=== PATIENT | male | born 1960 | race Caucasian/White ===

== ENCOUNTER 2017-03-26 13:20 | Inpatient (IN) | payer OTHER ==
[2017-03-26] VITALS (7 sets, daily range): BP systolic 126–149; BP diastolic 70–90; PULSE 64–82; RESP 16–17; TEMP 96.2–98.2; O2SAT 94–100
[~2017-03-26] VITALS: Ht 172.7 cm; Wt 57.4 kg
--- NOTE | 2017-03-26 13:34 | PD ---
Physical Exam Date Seen by Provider: Mar 26, 2017 Time Seen by Provider: 13:32 Data Data Last Documented VS Vital Signs Date Time Temp Pulse Resp B/P Pulse Ox O2 Delivery O2 Flow Rate FiO2 03/26/17 13:22 98.2 81 14 149/90 98 MDM Supervised Visit with HATTIE: No Narrative Course 56 YO right hand dominant M with complaint of laceration of right arm sustained ~noon. Crushed in a machine at work. Seen at urgent care and sent here. Vitals reviewed. Patient seen in triage, awaiting bed placement. Nika Harris Mar 26, 2017 13:33
--- NOTE | 2017-03-26 14:08 | PD ---
HPI Chief Complaint: Laceration/Skin Injury Time Seen by Provider: 14:00 Travel History International Travel<30 days: No Contact w/Intl Traveler<30days: No Traveled to known affect area: No History of Present Illness HPI 56-year-old right-hand dominant male presents for evaluation of laceration to the right forearm. He reports that prior to arrival his forearm became pinched by a machine at work and he sustained lacerations before and dorsal aspect of the right mid forearm. He has some pain associated with lacerations, mild, aching, worse with palpation. He also has some weakness when attempting to dorsiflex his third finger. Denies any numbness or tingling. Last tetanus vaccination unknown. No other complaints. PFSH Past Medical History Cardiovascular Problems: Yes (htn) Social History Alcohol Use: Yes Tobacco Use: Yes Allergies-Medications (Allergen,Severity, Reaction): Coded Allergies: No Known Allergies (Unverified , 03/26/17) Reported Meds & Prescriptions Reported Meds & Active Scripts Active Reported Combivent Respimat Inh (Ipratropium-Albuterol Inh) 20-100 Long Term/Act Aero 1 Puff INH QID Paxil (Paroxetine HCl) 30 Mg Tab 30 Mg PO HS Trazodone (Trazodone HCl) 100 Mg Tablet 200 Mg PO HS Xanax (Alprazolam) 1 Mg Tab 1 Mg PO TID Baclofen 10 Mg Tab 15 Mg PO TID Gabapentin 800 Mg Tab 800 Mg PO TID Naproxen 500 Mg Tab 500 Mg PO BID Review of Systems Except as stated in HPI: all other systems reviewed are Neg Physical Exam Narrative GENERAL: Well-developed well-nourished male in no acute distress SKIN: Warm and dry. There is a 2 cm laceration on the volar aspect of the mid right forearm which does not appear to involve the muscles. There is a 2 cm laceration on the dorsal aspect the right mid forearm. HEAD: Atraumatic. Normocephalic. EYES: Pupils equal and round. No scleral icterus. No injection or drainage. ENT: No nasal bleeding or discharge. Mucous membranes pink and moist. NECK: Trachea midline. No JVD. CARDIOVASCULAR: Regular rate and rhythm. No murmur appreciated. RESPIRATORY: No accessory muscle use. Clear to auscultation. Breath sounds equal bilaterally. GASTROINTESTINAL: Abdomen soft, non-tender, nondistended. Hepatic and splenic margins not palpable. MUSCULOSKELETAL: Skin as noted above. Slight weakness with dorsiflexion of the right third finger. 5 out of 5 muscle strength on right wrist flexion and extension. Capillary refill less than 2 seconds all digits right hand. Distal sensation preserved. NEUROLOGICAL: Awake and alert. No obvious cranial nerve deficits. Motor grossly within normal limits. Normal speech. PSYCHIATRIC: Appropriate mood and affect; insight and judgment normal. Data Data Last Documented VS Vital Signs Date Time Temp Pulse Resp B/P Pulse Ox O2 Delivery O2 Flow Rate FiO2 03/26/17 14:02 82 16 135/85 98 Room Air 03/26/17 13:22 98.2 Orders Cefazolin 2 Gm Premix (Ancef 2 Gm Premix (03/26/17 14:15) Tetanus/Diphtheria Tox Adult (Tetanus/Di (03/26/17 14:15) Forearm (2vws) (03/26/17 ) NPO (03/26/17 14:48) Complete Blood Count With Diff (03/26/17 14:48) Basic Metabolic Panel (Bmp) (03/26/17 14:48) Act Partial Throm Time (Ptt) (03/26/17 14:48) Prothrombin Time / Inr (Pt) (03/26/17 14:48) Electrocardiogram (03/26/17 ) Admit Order (Ed Use Only) (03/26/17 15:25) Consult Hand Surgery (03/26/17 ) Labs Laboratory Tests Test 03/26/17 03/26/17 15:00 15:20 White Blood Count 11.8 TH/MM3 Red Blood Count 4.82 MIL/MM3 Hemoglobin 14.7 GM/DL Hematocrit 43.6 % Mean Corpuscular Volume 90.5 FL Mean Corpuscular Hemoglobin 30.5 PG Mean Corpuscular Hemoglobin 33.7 % Concent Red Cell Distribution Width 13.5 % Platelet Count 350 TH/MM3 Mean Platelet Volume 8.3 FL Neutrophils (%) (Auto) 78.8 % Lymphocytes (%) (Auto) 13.6 % Monocytes (%) (Auto) 6.9 % Eosinophils (%) (Auto) 0.2 % Basophils (%) (Auto) 0.5 % Neutrophils # (Auto) 9.3 TH/MM3 Lymphocytes # (Auto) 1.6 TH/MM3 Monocytes # (Auto) 0.8 TH/MM3 Eosinophils # (Auto) 0.0 TH/MM3 Basophils # (Auto) 0.1 TH/MM3 CBC Comment DIFF FINAL Differential Comment Prothrombin Time 11.4 SEC Prothromb Time International 1.0 RATIO Ratio Activated Partial 28.7 SEC Thromboplast Time Sodium Level 134 MEQ/L Potassium Level 3.8 MEQ/L Chloride Level 99 MEQ/L Carbon Dioxide Level 28.0 MEQ/L Anion Gap 7 MEQ/L Blood Urea Nitrogen 12 MG/DL Creatinine 1.95 MG/DL Estimat Glomerular Filtration 36 ML/MIN Rate Random Glucose 84 MG/DL Calcium Level 8.5 MG/DL [facility] Medical Decision Making Medical Screen Exam Complete: Yes Emergency Medical Condition: Yes Medical Record Reviewed: Yes Differential Diagnosis Laceration, crush injury, compartment syndrome, muscle laceration, tendon laceration, open fracture Narrative Course 56-year-old male presents with lacerations to the volar and dorsal aspect of the right forearm after having his forearm pinched by a machine at work. He has weakness with dorsiflexion of the right third finger. Plan is for x-ray, tetanus vaccination, Ancef. We'll discuss with hand surgeon pest control specialist. Discussed with on-call hand surgeon Dr. Juárez who would like the patient to be NPO and admitted to the medical service. Discussed with the patient was agreeable. Diagnosis Primary Impression: Laceration of right forearm Qualified Code: S51.811A - Laceration of right forearm, initial encounter Admitting Information Admitting Physician Requests: Observation Donny Kruger Mar 26, 2017 14:08
[2017-03-26] MEDS ORDERED: ceFAZolin 2 GM PREMIX 50 ML IV ONE (14:15)
[2017-03-26] MEDS ORDERED: TETANUS/DIPHTHERIA TOXOID ADULT 0.5 ML VIAL IM ONE (14:15)
[2017-03-26] MEDS ORDERED: IPRAAER INH (15:16)
[2017-03-26] MEDS ORDERED: GABA800T PO (15:16)
[2017-03-26] MEDS ORDERED: TRAZ100T6 PO (15:16)
[2017-03-26] MEDS ORDERED: XANA1TAB2 PO (15:16)
[2017-03-26] MEDS ORDERED: PAXI30TA7 PO (15:16)
[2017-03-26] MEDS ORDERED: BACL10TA PO (15:16)
[2017-03-26] MEDS ORDERED: NAPR500T PO (15:16)
--- NOTE | 2017-03-26 15:24 | RADRPT ---
EXAM DATE/TIME: 03/26/2017 14:52 [facility] COMPARISON: No previous studies available for comparison. INDICATIONS : Right arm pain and lacerations after getting it caught in an air compressor. MEDICAL HISTORY : None. SURGICAL HISTORY : None. ENCOUNTER: Initial ACUITY: 1 day PAIN SCORE: 9/10 LOCATION: Right forearm. FINDINGS: There is a large laceration of the proximal dorsal and ventral forearm soft tissues. No radiopaque fo reign bodies or fracture. CONCLUSION: Large proximal forearm laceration. No fracture. Amarjit Sheets MD on March 26, 2017 at 15:21 Board Certified Radiologist. This report was verified electronically.
[2017-03-26 15:34] LABS: AUTOMATED NEUTROPHIL # 9.3 TH/MM3 (1.8-7.7); BASOPHIL # 0.1 TH/MM3 (0-0.2); BASOPHIL % 0.5 % (0.0-2.0); EOSINOPHIL % 0.2 % (0.0-4.0); HEMATOCRIT 43.6 % (39.0-51.0); HEMO FLAGS DIFF FINAL; LYMPH % 13.6 % (9.0-44.0); LYMPHOCYTE # 1.6 TH/MM3 (1.0-4.8); MEAN CELL VOLUME 90.5 FL (80.0-100.0); MEAN CORPUSCULAR HEMOGLOBIN 30.5 PG (27.0-34.0); MEAN CORPUSCULAR HGB CONC 33.7 % (32.0-36.0); MONO % 6.9 % (0.0-8.0); NEUT % 78.8 % (16.0-70.0); PLATELET COUNT 350 TH/MM3 (150-450); RED BLOOD COUNT 4.82 MIL/MM3 (4.50-5.90); RED CELL DISTRIBUTION WIDTH 13.5 % (11.6-17.2); WHITE BLOOD COUNT 11.8 TH/MM3 (4.0-11.0)
[2017-03-26 15:45] LABS: APTT (PATIENT) 28.7 SEC (24.3-30.1); PROTHROMBIN TIME - PATIENT 11.4 SEC (9.8-11.6)
[2017-03-26 16:06] LABS: POTASSIUM 3.8 MEQ/L (3.5-5.1)
--- NOTE | 2017-03-26 17:26 | HHI.HP ---
[facility] Service Family Medicine Primary Care Physician [facility] Admission Diagnosis lacerations right forearm Diagnoses: International Travel<30 Days: No Contact w/Intl Traveler<30days: No Known Affected Area: No History of Present Illness Mr. Peralta is a 56 y/o M with a PMHx of HTN, COPD, and anxiety presenting to the ED s/p manufacturing injury to his RUE. 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 This resulted in two lacerations of this forearm, one on the flexural side and one on the extensor side. Immediately after he felt 10/ 10 pain and the wounds started to immediately hemorrhage. He wrapped his arm in a rag and was transferred to an urgent care for evaluation who recommended he come to the ED. Currently his arm is wrapped in a sterile bandage with his pain controlled at 3/10. His only complaint is that he cannot extend the 3rd finger of his R hand. He initially had some mild nausea after the incident, but that has since resolved. Otherwise he denies any fevers, chills, SOB, chest pain, ABD pain, NVD, or calf tenderness. (Ren Sahu MD R1) Review of Systems Constitutional: DENIES: Fever, Chills Eyes: DENIES: Blurred vision Ears, nose, mouth, throat: DENIES: Tinnitus, Throat pain, Running Nose Respiratory: COMPLAINS OF: Shortness of breath, DENIES: Cough Cardiovascular: DENIES: Chest pain, Palpitations Gastrointestinal: COMPLAINS OF: Diarrhea (Semisoid), Nausea, DENIES: Abdominal pain, Constipation, Vomiting Genitourinary: DENIES: Dysuria Musculoskeletal: DENIES: Joint pain Integumentary: DENIES: Rash Hematologic/lymphatic: DENIES: Lymphadenopathy Neurologic: DENIES: Headache Psychiatric: COMPLAINS OF: Anxiety (Ren Sahu MD R1) Past Family Social History Past Medical History Anxiety Degenerative disk disease (lumbar and cervical) Broken ribs HTN COPD Past Surgical History Tonsillectomy Reported Medications Reported Meds & Active Scripts Active Reported Combivent Respimat Inh (Ipratropium-Albuterol Inh) 20-100 Fdc/Act Aero 1 Puff INH QID Paxil (Paroxetine HCl) 30 Mg Tab 30 Mg PO HS Trazodone (Trazodone HCl) 100 Mg Tablet 200 Mg PO HS Xanax (Alprazolam) 1 Mg Tab 1 Mg PO TID Baclofen 10 Mg Tab 15 Mg PO TID Gabapentin 800 Mg Tab 800 Mg PO TID Naproxen 500 Mg Tab 500 Mg PO BID (Ren Sahu MD R1) Allergies: Coded Allergies: No Known Allergies (Unverified , 03/26/17) Family History Father - decreased from [place] Mother - living, healthy Half sister - unknown malignancy Social History Lives in [place] by himself in mobile home. of [employer], seen at [place]. Works at [employer]. Tobacco - 1/2 ppd for 40 years Alcohol - last drink 6 years Illicit drugs - denies uses (Ren Sahu MD R1) Physical Exam Vital Signs Vital Signs Date Time Temp Pulse Resp B/P Pulse Ox O2 Delivery O2 Flow Rate FiO2 03/26/17 14:02 82 16 135/85 98 Room Air 03/26/17 13:22 98.2 81 14 149/90 98 Physical Exam GENERAL: Well-nourished, well-developed 56-year-old male lying in bed in no acute distress. SKIN: Warm and dry. No rash. EYES: No scleral icterus. No injection or drainage. PERRLA. EOMI. HENT: Normocephalic. Atraumatic. MMM. OP Benign. NECK: Supple, trachea midline. No JVD or lymphadenopathy. CARDIOVASCULAR: Regular rate and irregular rhythm without obvious murmurs, gallops, or rubs. RESPIRATORY: Expiratory respiratory wheezes bilaterally throughout both lung leonard. No crackles or rhonchi. No increased work of breathing. GASTROINTESTINAL: Abdomen soft, non-tender, nondistended with positive bowel sounds. No masses appreciated. MUSCULOSKELETAL: No cyanosis or edema. Strength grossly WNL. Right upper extremity: 3-3-1/2 cm laceration on the dorsal aspect of the right forearm with 2-2 cm laceration on the flexural aspect of the right forearm.. Laceration appears clean with no current hemorrhage or purulent material. Subcutaneous structures appear intact without deformity. Weakness of the third digit of the right hand with extension of the digits, otherwise range of motion within normal limits. Needle Punch Operator strength intact bilaterally as well as sensation throughout the right upper extremity. Capillary refill less than 2 seconds. Appropriate range of motion and strength at the wrist with 2+ radial pulse. BACK: Nontender without obvious deformity. No CVA tenderness. NEURO/PSYCH: Afocal. Awake, alert, and oriented x3. Laboratory Laboratory Tests Test 03/26/17 03/26/17 15:00 15:20 White Blood Count 11.8 Red Blood Count 4.82 Hemoglobin 14.7 Hematocrit 43.6 Mean Corpuscular Volume 90.5 Mean Corpuscular Hemoglobin 30.5 Mean Corpuscular Hemoglobin 33.7 Concent Red Cell Distribution Width 13.5 Platelet Count 350 Mean Platelet Volume 8.3 Neutrophils (%) (Auto) 78.8 Lymphocytes (%) (Auto) 13.6 Monocytes (%) (Auto) 6.9 Eosinophils (%) (Auto) 0.2 Basophils (%) (Auto) 0.5 Neutrophils # (Auto) 9.3 Lymphocytes # (Auto) 1.6 Monocytes # (Auto) 0.8 Eosinophils # (Auto) 0.0 Basophils # (Auto) 0.1 CBC Comment DIFF FINAL Differential Comment Prothrombin Time 11.4 Prothromb Time International 1.0 Ratio Activated Partial 28.7 Thromboplast Time Sodium Level 134 Potassium Level 3.8 Chloride Level 99 Carbon Dioxide Level 28.0 Anion Gap 7 Blood Urea Nitrogen 12 Creatinine 1.95 Estimat Glomerular Filtration 36 Rate Random Glucose 84 Calcium Level 8.5 (Ren Sahu MD R1) Result Diagram: 03/26/17 1500 03/26/17 1520 Imaging Last 72 hours Impressions Radius/Ulna X-Ray 03/26/17 0000 Signed Impressions: Service Date/Time: Sunday, March 26, 2017 14:52 - CONCLUSION: Large proximal forearm laceration. No fracture. Amarjit Sheets MD (Ren Sahu MD R1) Assessment and Plan Assessment and Plan Mr. Peralta is a 56 y/o M with a PMHx of HTN, COPD, and anxiety presenting to the ED s/p manufacturing injury to his RUE. He will be admitted and taken to the OR for irrigation and debridement with possible extensor tendon repair. Code Status Full Discussed Condition With Mr. Kruger, KENDELL Peralta (Ren Sahu MD R1) Attending Attestation Patient seen and examined. Case reviewed and discussed with the resident team. Agree with plan of care as discussed with me and documented in the resident note. his initial EKG does not show bigeminy but grouped beating with one normal p wave and one ectopic and early but the qrs looks the same in both beats. His next EKG looks like normal sinus (Katy Mcgregor MD) Problem List: (1) Laceration of right forearm Status: Acute Plan: Patient with mechanical injury to right upper extremity resulting in laceration of the flexural and extensor surface of the right forearm X-ray: Large proximal forearm laceration. No fracture. Consult hand surgery, pressure recommendations * Planned for surgical irrigation and debridement with possible repair of extensor tendon this afternoon * Cefazolin given in ER * Tetanus shot given in ER (2) Bigeminy Status: Acute Plan: Patient found to have irregular heart rate on exam. Patient asymptomatic. EKG: Sinus rhythm with bigeminal pattern. Heart rate 68 bpm with normal intervals. (Per medical team read) Continue to monitor. With symptoms consider beta padmini for rate control. (3) DDD (degenerative disc disease), lumbar Status: Chronic Plan: Patient with history of degenerative disc disease of the lumbar and cervical spine Hold baclofen 50 mg 3 times a day secondary to NGUYEN Continue gabapentin 800 mg 3 times a day Hold naproxen 500 mg twice a day secondary to NGUYEN (4) HTN (hypertension) Status: Chronic Plan: Patient with history of hypertension. Currently not on medications. Clonidine 0.1 mg when necessary for blood pressure greater than 180/100 (5) Anxiety Status: Chronic Plan: Patient with history of anxiety Continue Xanax 1 mg 3 times a day Continue paroxetine 30 mg daily at bedtime (6) COPD (chronic obstructive pulmonary disease) Status: Chronic Plan: Patient with history of COPD secondary to smoking history Chest x-ray: No acute disease. Continue Combivent DuoNeb's when necessary for shortness of breath Hold nicotine patch secondary to procedure (7) Nutrition, metabolism, and development symptoms Status: Acute Plan: Diet: Nothing by mouth for procedure Fluids: D5 half-normal saline at 100 mL per hour Electrolytes: Hyponatremia, Continue to monitor (8) Surgical contraindication to deep vein thrombosis (DVT) prophylaxis Status: Acute Plan: Patient to a bar for irrigation and debridement and possible fixation of the extensor tendon. Hold anticoagulation for procedure. SCD/TEDs (Ren Sahu MD R1) Physician Certification 2 Midnight Certification Type: Admission for Inpatient Services Order for Inpatient Services The services are ordered in accordance with Medicare regulations or non- Medicare payer requirements, as applicable. In the case of services not specified as inpatient-only, they are appropriately provided as inpatient services in accordance with the 2-midnight benchmark. Estimated LOS (days): 3 3 days is the estimated time the patient will need to remain in the hospital, assuming treatment plan goals are met and no additional complications. Post-Hospital Plan: Home (Ren Sahu MD R1) Problem Qualifiers (1) Laceration of right forearm: Qualified Code: S51.811A - Laceration of right forearm, initial encounter (2) HTN (hypertension): Qualified Code: I10 - Essential hypertension (3) COPD (chronic obstructive pulmonary disease): Qualified Code: J44.9 - Chronic obstructive pulmonary disease, unspecified COPD type Ren Sahu MD R1 Mar 26, 2017 17:26 Katy Mcgregor MD Mar 27, 2017 14:36
[2017-03-26] MEDS ORDERED: PILL SPLITTER OTHER PRN (17:45)
[2017-03-26] MEDS ORDERED: LACTULOSE SYRUP 20 GM/30 ML CUP PO PRN (18:00)
[2017-03-26] MEDS ORDERED: SODIUM CHLORIDE 0.9% FLUSH 10 ML FLUSH IV FLUSH PRN (18:00)
[2017-03-26] MEDS ORDERED: BACLOFEN 10 MG TAB PO SCH (18:00)
[2017-03-26] MEDS ORDERED: MORPHINE SULFATE 4 MG/ML INJ IV PRN ×2 (18:00)
[2017-03-26] MEDS ORDERED: ONDANSETRON HCL 4 MG/2 ML VIAL IVP PRN (18:00)
[2017-03-26] MEDS ORDERED: ACETAMINOPHEN 325 MG TAB PO PRN (18:00)
[2017-03-26] MEDS ORDERED: NALOXONE HCL 0.4 MG/ML AMP IV PRN (18:00)
[2017-03-26] MEDS ORDERED: SENNOSIDES 8.6 MG TAB PO PRN (18:00)
[2017-03-26] MEDS ORDERED: MAGNESIUM HYDROXIDE SUSP 30 ML CUP PO PRN (18:00)
[2017-03-26] MEDS ORDERED: BISACODYL 10 MG SUPP RECTAL PRN (18:00)
[2017-03-26] MEDS: DEXT 5%-NACL 0.45% 1000 ML INJ 1,000 ML IV SCH ×2 (18:00→20:00)
[2017-03-26] MEDS ORDERED: NON-FORMULARY DRUG (Ipratropium-Albuterol Inh (Combivent Respimat Inh) 1 PUFF) INH SCH (18:00)
--- NOTE | 2017-03-26 19:57 | RADRPT ---
EXAM DATE/TIME: 03/26/2017 19:12 [facility] COMPARISON: No previous studies available for comparison. INDICATIONS : Shortness of breath. MEDICAL HISTORY : Chronic obstructive pulmonary disease. SURGICAL HISTORY : None. ENCOUNTER: Initial ACUITY: 1 day PAIN SCORE: 0/10 LOCATION: Bilateral chest FINDINGS: The heart size is normal. The lungs are free of focal consolidation. There is a calcified granuloma i n the right upper lung. No effusion is seen. CONCLUSION: No acute disease. Adrien Baxter MD on March 26, 2017 at 19:53 Board Certified Radiologist. This report was verified electronically.
[2017-03-26] MEDS ORDERED: cloNIDine HCL 0.1 MG TAB PO PRN (20:15)
[2017-03-26] MEDS: SODIUM CHLORIDE 0.9% FLUSH 10 ML FLUSH IV FLUSH SCH (20:43)
[2017-03-26] MEDS ORDERED: NAPROXEN 500 MG TAB PO SCH (21:00)
[2017-03-26] MEDS: ALBUTEROL SULFATE 90 MCG/ACT HFA 18 GM INHALER INH SCH (21:00)
[2017-03-26] MEDS ORDERED: INSULIN HUMAN REGULAR 1,000 UNITS/10 ML VIAL SQ PRN (22:15)
[2017-03-26] MEDS ORDERED: LACTATED RINGER'S 1000 ML IV PRN (22:15)
[2017-03-26] MEDS ORDERED: SODIUM CHLORID 0.9% 500 ML IV PRN (22:15)
[2017-03-26] MEDS ORDERED: CHLORHEXIDINE GLUCONATE 2 % 1 PACK (2 CLOTHS) TOPICAL PRN (22:15)
[2017-03-26] MEDS ORDERED: POVIDONE IODINE 5% (ANTISEPSIS KIT) 4 APPLICATIONS EACH NARE PRN (22:15)
[2017-03-26] MEDS: MORPHINE SULFATE 4 MG/ML INJ IV PRN (22:16)
[2017-03-26] MEDS: RESP: ALBUTEROL 2.5 MG/IPRATROPIUM 0.5 MG NEB (PRN) NEB (22:23)
[2017-03-27] VITALS (8 sets, daily range): BP systolic 99–132; BP diastolic 58–88; PULSE 62–79; RESP 16–18; TEMP 96.4–97.9; O2SAT 92–99
--- NOTE | 2017-03-27 01:02 | PD.ORT.PN ---
Subjective Subjective Remarks See dictated consult note for full details. Patient reports pain controlled. Denies paresthesias. Reports inability to extend right middle finger after injury at work today. Objective Vitals Vital Signs Date Time Temp Pulse Resp B/P Pulse Ox O2 Delivery O2 Flow Rate FiO2 03/26/17 23:30 98.3 68 18 133/85 94 03/26/17 23:30 64 03/26/17 23:00 96.2 73 16 126/87 100 03/26/17 22:00 97.1 71 17 131/83 97 03/26/17 18:54 98.1 73 16 145/70 94 03/26/17 17:57 78 16 128/74 100 03/26/17 14:02 82 16 135/85 98 Room Air 03/26/17 13:22 98.2 81 14 149/90 98 I/O 03/26/17 03/26/17 03/26/17 03/27/17 03/27/17 03/27/17 06:59 14:59 22:59 06:59 14:59 22:59 Intake Total 0 ml Output Total 800 ml Balance -800 ml Intake Oral 0 ml Output Urine Total 800 ml # Voids 3 # Bowel Movements 0 Result Diagram: 03/26/17 1500 03/26/17 1520 Other Results Laboratory Tests Test 03/26/17 15:00 Prothrombin Time 11.4 SEC (9.8-11.6) Prothromb Time International 1.0 RATIO Ratio Objective Remarks Lacerations dorsal and volar forearm, lack of full extension left middle finger , sitlt m/u/r, 2+ radial pulse, compartments soft and compressible Assessment & Plan Assessment and Plan 56yM s/p lacerations right forearm dorsal and volar after injury at work with concern for extensor tendon laceration right middle finger -Admit to medicine for OR when available. Initially was planning for OR 03/26 but bumped so planned for OR 03/27 -Keep NPO Oralia Juárez MD Mar 27, 2017 01:02
[2017-03-27] MEDS: DOCUSATE SODIUM 50 MG/SENNA 8.6 MG TAB PO SCH ×3 (01:04→21:00)
[2017-03-27] MEDS: ALPRAZolam 1 MG TAB PO SCH ×4 (01:04→21:24)
[2017-03-27] MEDS: traZODone HCL 100 MG TAB PO SCH ×2 (01:05→21:23)
[2017-03-27] MEDS: GABAPENTIN 400 MG CAP PO SCH ×3 (01:05→21:23)
[2017-03-27] MEDS: PARoxetine HCL 20 MG TAB PO SCH ×2 (01:05→21:23)
[2017-03-27 08:04] LABS: BASOPHIL # 0.1 TH/MM3 (0-0.2); BASOPHIL % 1.2 % (0.0-2.0); EOSINOPHIL # 0.2 TH/MM3 (0-0.4); EOSINOPHIL % 2.1 % (0.0-4.0); HEMATOCRIT 44.4 % (39.0-51.0); HEMO FLAGS DIFF FINAL; LYMPH % 35.1 % (9.0-44.0); LYMPHOCYTE # 2.9 TH/MM3 (1.0-4.8); MEAN CELL VOLUME 91.1 FL (80.0-100.0); MEAN CORPUSCULAR HEMOGLOBIN 30.3 PG (27.0-34.0); MEAN CORPUSCULAR HGB CONC 33.3 % (32.0-36.0); MONO % 12.5 % (0.0-8.0); NEUT % 49.1 % (16.0-70.0); PLATELET COUNT 331 TH/MM3 (150-450); RED BLOOD COUNT 4.87 MIL/MM3 (4.50-5.90); RED CELL DISTRIBUTION WIDTH 13.4 % (11.6-17.2); WHITE BLOOD COUNT 8.2 TH/MM3 (4.0-11.0)
[2017-03-27 08:34] LABS: BICARBONATE 26.2 MEQ/L (21.0-32.0); POTASSIUM 4.4 MEQ/L (3.5-5.1)
[2017-03-27] MEDS ORDERED: TIOTROPIUM BROMIDE 18 MCG INH INH SCH (09:00)
--- NOTE | 2017-03-27 09:22 | HHI.HP ---
[facility] Service Family Medicine Primary Care Physician [facility] Admission Diagnosis lacerations right forearm Diagnoses: (1) Laceration of right forearm Diagnosis: Principal (2) Bigeminy Diagnosis: Principal (3) DDD (degenerative disc disease), lumbar Diagnosis: Principal (4) HTN (hypertension) Diagnosis: Principal (5) Anxiety Diagnosis: Principal (6) COPD (chronic obstructive pulmonary disease) Diagnosis: Principal (7) Nutrition, metabolism, and development symptoms Diagnosis: Principal (8) Surgical contraindication to deep vein thrombosis (DVT) prophylaxis Diagnosis: Principal International Travel<30 Days: No Contact w/Intl Traveler<30days: No Known Affected Area: No History of Present Illness Mr. Peralta is a 56 y/o M with a PMHx of HTN, COPD, and anxiety presenting to the ED s/p manufacturing injury to his RUE. 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 This resulted in two lacerations of this forearm, one on the flexural side and one on the extensor side. Immediately after he felt 10/ 10 pain and the wounds started to immediately hemorrhage. He wrapped his arm in a rag and was transferred to an urgent care for evaluation who recommended he come to the ED. Currently his arm is wrapped in a sterile bandage with his pain controlled at 3/10. His only complaint is that he cannot extend the 3rd finger of his R hand. He initially had some mild nausea after the incident, but that has since resolved. Otherwise he denies any fevers, chills, SOB, chest pain, ABD pain, NVD, or calf tenderness. He is stable overnight and is scheduled to have surgery to wash out his wound and for further evaluation Review of Systems Other Constitutional: DENIES: Fever, Chills Eyes: DENIES: Blurred vision Ears, nose, mouth, throat: DENIES: Tinnitus, Throat pain, Running Nose Respiratory: COMPLAINS OF: Shortness of breath, DENIES: Cough Cardiovascular: DENIES: Chest pain, Palpitations Gastrointestinal: COMPLAINS OF: Diarrhea (Semisoid), Nausea, DENIES: Abdominal pain, Constipation, Vomiting Genitourinary: DENIES: Dysuria Musculoskeletal: DENIES: Joint pain Integumentary: DENIES: Rash Hematologic/lymphatic: DENIES: Lymphadenopathy Neurologic: DENIES: Headache Psychiatric: COMPLAINS OF: Anxiety Past Family Social History Past Medical History Anxiety Degenerative disk disease (lumbar and cervical) Broken ribs HTN COPD Past Surgical History Tonsillectomy Allergies: Coded Allergies: No Known Allergies (Unverified , 03/26/17) Family History Father - decreased from ID Mother - living, healthy Half sister - unknown malignancy Social History Lives in [place] by himself in mobile home. [place] [employer], seen at [place]. Works at [employer]. Tobacco - 1/2 ppd for 40 years Alcohol - last drink 6 years Illicit drugs - denies uses Physical Exam Vital Signs Vital Signs Date Time Temp Pulse Resp B/P Pulse Ox O2 Delivery O2 Flow Rate FiO2 03/27/17 08:00 96.7 69 16 104/73 94 03/27/17 04:00 97.0 62 18 99/58 92 03/26/17 23:30 98.3 68 18 133/85 94 03/26/17 23:30 64 03/26/17 23:00 96.2 73 16 126/87 100 03/26/17 22:20 18 03/26/17 22:00 97.1 71 17 131/83 97 03/26/17 18:54 98.1 73 16 145/70 94 03/26/17 17:57 78 16 128/74 100 03/26/17 14:02 82 16 135/85 98 Room Air 03/26/17 13:22 98.2 81 14 149/90 98 Physical Exam GENERAL: Well-nourished, well-developed 56-year-old male lying in bed in no acute distress. SKIN: Warm and dry. No rash. EYES: No scleral icterus. No injection or drainage. PERRLA. EOMI. HENT: Normocephalic. Atraumatic. MMM. OP Benign. NECK: Supple, trachea midline. No JVD or lymphadenopathy. CARDIOVASCULAR: Regular rate and irregular rhythm without obvious murmurs, gallops, or rubs. RESPIRATORY: Expiratory respiratory wheezes bilaterally throughout both lung leonard. No crackles or rhonchi. No increased work of breathing. GASTROINTESTINAL: Abdomen soft, non-tender, nondistended with positive bowel sounds. No masses appreciated. MUSCULOSKELETAL: No cyanosis or edema. Strength grossly WNL. Right upper extremity: 3-3-1/2 cm laceration on the dorsal aspect of the right forearm with 2-2 cm laceration on the flexural aspect of the right forearm.. Laceration appears clean with no current hemorrhage or purulent material. Subcutaneous structures appear intact without deformity. Weakness of the third digit of the right hand with extension of the digits, otherwise range of motion within normal limits. Shipping Technician strength intact bilaterally as well as sensation throughout the right upper extremity. Capillary refill less than 2 seconds. Appropriate range of motion and strength at the wrist with 2+ radial pulse. Exam done by Dr Sahu on admission BACK: Nontender without obvious deformity. No CVA tenderness. NEURO/PSYCH: Afocal. Awake, alert, and oriented x3. Laboratory Laboratory Tests Test 03/26/17 03/26/17 03/27/17 15:00 15:20 07:15 White Blood Count 11.8 8.2 Red Blood Count 4.82 4.87 Hemoglobin 14.7 14.8 Hematocrit 43.6 44.4 Mean Corpuscular Volume 90.5 91.1 Mean Corpuscular Hemoglobin 30.5 30.3 Mean Corpuscular Hemoglobin 33.7 33.3 Concent Red Cell Distribution Width 13.5 13.4 Platelet Count 350 331 Mean Platelet Volume 8.3 8.0 Neutrophils (%) (Auto) 78.8 49.1 Lymphocytes (%) (Auto) 13.6 35.1 Monocytes (%) (Auto) 6.9 12.5 Eosinophils (%) (Auto) 0.2 2.1 Basophils (%) (Auto) 0.5 1.2 Neutrophils # (Auto) 9.3 4.0 Lymphocytes # (Auto) 1.6 2.9 Monocytes # (Auto) 0.8 1.0 Eosinophils # (Auto) 0.0 0.2 Basophils # (Auto) 0.1 0.1 CBC Comment DIFF FINAL DIFF FINAL Differential Comment Prothrombin Time 11.4 Prothromb Time International 1.0 Ratio Activated Partial 28.7 Thromboplast Time Sodium Level 134 139 Potassium Level 3.8 4.4 Chloride Level 99 106 Carbon Dioxide Level 28.0 26.2 Anion Gap 7 7 Blood Urea Nitrogen 12 12 Creatinine 1.95 1.09 Estimat Glomerular Filtration 36 70 Rate Random Glucose 84 87 Calcium Level 8.5 9.2 Date/Time Procedure Status Source Growth 03/26/17 21:18 Aerobic Blood Culture Received Blood Peripheral Pending 03/26/17 21:18 Anaerobic Blood Culture Received Blood Peripheral Pending Result Diagram: 03/27/17 0715 03/27/17 0715 Imaging Last 72 hours Impressions Radius/Ulna X-Ray 03/26/17 0000 Signed Impressions: Service Date/Time: Sunday, March 26, 2017 14:52 - CONCLUSION: Large proximal forearm laceration. No fracture. Amarjit Sheets MD Assessment and Plan Assessment and Plan Mr. Peralta is a 56 y/o M with a PMHx of HTN, COPD, and anxiety presenting to the ED s/p manufacturing injury to his RUE. He will be admitted and taken to the OR for irrigation and debridement with possible extensor tendon repair. Problem List: (1) Laceration of right forearm Status: Acute Plan: Patient with mechanical injury to right upper extremity resulting in laceration of the flexural and extensor surface of the right forearm X-ray: Large proximal forearm laceration. No fracture. Consult hand surgery, pressure recommendations * Planned for surgical irrigation and debridement with possible repair of extensor tendon this afternoon * Cefazolin given in ER * Tetanus shot given in ER (2) Bigeminy Status: Acute Plan: Patient found to have irregular heart rate on exam. Patient asymptomatic. EKG: Sinus rhythm with bigeminal pattern. Heart rate 68 bpm with normal intervals. (Per medical team read) Continue to monitor. With symptoms consider beta padmini for rate control. (3) DDD (degenerative disc disease), lumbar Status: Chronic Plan: Patient with history of degenerative disc disease of the lumbar and cervical spine Hold baclofen 50 mg 3 times a day secondary to NGUYEN Continue gabapentin 800 mg 3 times a day Hold naproxen 500 mg twice a day secondary to NGUYEN (4) HTN (hypertension) Status: Chronic Plan: Patient with history of hypertension. Currently not on medications. Clonidine 0.1 mg when necessary for blood pressure greater than 180/100 (5) Anxiety Status: Chronic Plan: Patient with history of anxiety Continue Xanax 1 mg 3 times a day Continue paroxetine 30 mg daily at bedtime (6) COPD (chronic obstructive pulmonary disease) Status: Chronic Plan: Patient with history of COPD secondary to smoking history Chest x-ray: No acute disease. Continue Combivent DuoNeb's when necessary for shortness of breath Hold nicotine patch secondary to procedure (7) Nutrition, metabolism, and development symptoms Status: Acute Plan: Diet: Nothing by mouth for procedure today Fluids: D5 half-normal saline at 100 mL per hour Electrolytes: Hyponatremia, Continue to monitor (8) Surgical contraindication to deep vein thrombosis (DVT) prophylaxis Status: Acute Plan: Patient to surgery for irrigation and debridement and possible fixation of the extensor tendon. Hold anticoagulation for procedure. SCD/TEDs Physician Certification 2 Midnight Certification Type: Admission for Inpatient Services Order for Inpatient Services The services are ordered in accordance with Medicare regulations or non- Medicare payer requirements, as applicable. In the case of services not specified as inpatient-only, they are appropriately provided as inpatient services in accordance with the 2-midnight benchmark. Estimated LOS (days): 2 2 days is the estimated time the patient will need to remain in the hospital, assuming treatment plan goals are met and no additional complications. Post-Hospital Plan: Home Problem Qualifiers (1) Laceration of right forearm: Qualified Code: S51.811A - Laceration of right forearm, initial encounter (2) HTN (hypertension): Qualified Code: I10 - Essential hypertension (3) COPD (chronic obstructive pulmonary disease): Qualified Code: J44.9 - Chronic obstructive pulmonary disease, unspecified COPD type Katy Mcgregor MD Mar 27, 2017 09:22
[2017-03-27] MEDS: RESP: ALBUTEROL 2.5 MG/IPRATROPIUM 0.5 MG NEB (PRN) NEB ×2 (09:23→15:57)
[2017-03-27] MEDS: SODIUM CHLORIDE 0.9% FLUSH 10 ML FLUSH IV FLUSH SCH ×2 (10:30→21:00)
[2017-03-27] MEDS ORDERED: LACTATED RINGER'S 1000 ML INJ 1,000 ML IV ONE (12:00)
[2017-03-27] MEDS ORDERED: PHENYLEPH/NS 1000 MCG/10 ML SYR IV ONE (12:00)
[2017-03-27] MEDS ORDERED: PROPOFOL 200 MG/20 ML AMP IV ONE (12:00)
[2017-03-27] MEDS ORDERED: ONDANSETRON HCL 4 MG/2 ML VIAL IV PUSH ONE (12:00)
[2017-03-27] MEDS ORDERED: ePHEDrine/NS 25 MG/5 ML SYR IV ONE (12:00)
[2017-03-27] MEDS ORDERED: BACITRACIN TOP OINT 15 GM TUBE ONE (17:40)
[2017-03-27] MEDS ORDERED: LIDOCAINE HCL 1% 50 ML VIAL ONE (17:40)
[2017-03-27] MEDS ORDERED: MINERAL OIL 10 ML VIAL ONE (17:40)
[2017-03-27] MEDS ORDERED: BUPIVACAINE HCL PF 0.5% 30 ML VIAL ONE (17:40)
[2017-03-27] MEDS ORDERED: ceFAZolin 2 GM PREMIX 50 ML ONE (18:02)
[2017-03-27] MEDS ORDERED: ACETAMINOPHEN 1000 MG/100 ML VIAL IV ONE (18:17)
[2017-03-27] MEDS ORDERED: FAMOTIDINE 20 MG/2 ML VIAL ONE (18:17)
[2017-03-27] MEDS ORDERED: MIDAZOLAM HCL 2 MG/2 ML VIAL ONE (18:17)
[2017-03-27] MEDS ORDERED: CLINDAMYCIN PHOS 600 MG/4 ML VIAL ONE (18:39)
[2017-03-27] MEDS ORDERED: LIDOCAINE HCL 2% 50 ML VIAL ONE (18:58)
[2017-03-27] MEDS ORDERED: NEOMYCIN/POLYMYXIN 1 ML G.U. IRRIGANT TOPICAL ONE (19:02)
[2017-03-27] MEDS ORDERED: DO NOT ADM ANY ANTICOAGULANT DRUGS PRN (20:01)
--- NOTE | 2017-03-27 20:03 | PD.ORT.PN ---
Subjective Subjective Remarks Patient reports moderate pain right forearm. Denies paresthesias. Objective Vitals Vital Signs Date Time Temp Pulse Resp B/P Pulse Ox O2 Delivery O2 Flow Rate FiO2 03/27/17 16:00 97.9 76 16 132/88 97 03/27/17 12:00 97.5 72 16 115/80 94 03/27/17 09:23 95 21 03/27/17 08:00 96.7 69 16 104/73 94 03/27/17 04:00 97.0 62 18 99/58 92 03/26/17 23:30 98.3 68 18 133/85 94 03/26/17 23:30 64 03/26/17 23:00 96.2 73 16 126/87 100 03/26/17 22:20 18 03/26/17 22:00 97.1 71 17 131/83 97 I/O 03/26/17 03/26/17 03/26/17 03/27/17 03/27/17 03/27/17 07:00 15:00 23:00 07:00 15:00 23:00 Intake Total 0 ml 240 ml 0 ml Output Total 800 ml Balance -800 ml 240 ml 0 ml Intake Oral 0 ml 240 ml 0 ml Output Urine Total 800 ml # Voids 3 1 2 # Bowel Movements 0 0 0 Result Diagram: 03/27/17 0715 03/27/17 0715 Objective Remarks Splint in place, sitlt m/u/r, <2 sec capillary refill Assessment & Plan Assessment and Plan 56yM s/p lacerations right forearm POD0 s/p I&D right forearm, repair of extensor fascia, no laceration of extensor tendon, compartments soft and compressible -Continue antibiotics -Keep splint in place -Patient to be off work, followup 1-2 weeks, okay to discharge per hand surgery Oralia Juárez MD Mar 27, 2017 20:03
[2017-03-27] MEDS ORDERED: fentaNYL CITRATE 250 MCG/5 ML AMP ONE (20:12)
--- NOTE | 2017-03-27 21:19 | MB ---
cc: ORALIA JUÁREZ DATE OF CONSULTATION 03/26/2017 REASON FOR CONSULTATION Open wound right forearm status post crushing injury to the right forearm with concern for injury to the extensor tendon or muscle of the right middle finger. 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 The patient was brought for evaluation. At the time of my exam he reported minimal pain over the forearm. Denied any paresthesias. Denies any prior injuries to the right forearm. He is right hand dominant. He does work in labor. His only complaint is inability to fully hyperextend the middle finger, although he can still extend the middle finger as well as the wrist. He states the pain is controlled. PAST MEDICAL HISTORY 1. Anxiety. 2. Lumbar and cervical degenerative disk disease. 3. Hypertension. 4. COPD. PAST SURGICAL HISTORY Tonsillectomy. MEDICATIONS 1. Combivent. 2. Paxil. 3. Trazodone. 4. Xanax. 5. Baclofen. 6. Gabapentin. 7. Naproxen. ALLERGIES NO KNOWN DRUG ALLERGIES. SOCIAL HISTORY The patient does work. He lives in [place] alone. He does smoke half-pack per day for 40 years. Denies any drug use. PHYSICAL EXAMINATION GENERAL: The patient was alert and oriented in no acute distress. EXTREMITIES: Exam of the right forearm showed approximately a 3-4 cm laceration on the dorsum of the right forearm and a 2-3 cm laceration on the volar aspect of the mid forearm which was transverse in nature. The patient was able to make a full composite fist. Sensation was intact in the median, ulnar and radial distribution. 2+ radial pulse and less than 2 second capillary refill of the fingers. Full extension of the thumb, index, ring and small fingers. He is unable to hyperextend the middle finger at the MP joint but did not have a significant extensor lag. Minimal pain with wrist extension. Again approximately a 3-4 cm laceration on the mid dorsum of the forearm. Full range of motion of the elbow. IMAGING STUDIES X-rays of the right forearm showed no evidence of fracture. ASSESSMENT/PLAN A 56-year-old male with open wounds of the right forearm, concern for injury to the extensor musculature fascia or tendons. Treatment options discussed with the patient. Due to the contaminated wound I recommend irrigation, debridement, exploration of the wound, possible repair of the fascia, tendon or muscle and observation for the development of compartment syndrome. The patient elected to proceed. At this time he has no evidence of compartment syndrome. He had no evidence of any injury to the flexors or median nerve. He will be scheduled for the operating room at the earliest available time. He was given antibiotics in the emergency room. He should remain off work until further notice. Oralia Juárez MD SH/KK /8:22 PM /9:09 PM MTDRe
[2017-03-27] MEDS: ALBUTEROL SULFATE 90 MCG/ACT HFA 18 GM INHALER INH SCH (21:35)
[2017-03-27] MEDS: MORPHINE SULFATE 4 MG/ML INJ IV PRN (21:35)
--- NOTE | 2017-03-27 23:19 | EKG ---
Date Performed: 03/26/2017 Time Performed: 21:13:07 PTAGE: 56 years EKG: Sinus rhythm NORMAL ECG PREVIOUS TRACING : 03/26/2017 15.05 Compared to prior tracing no significant change DOCTOR: Mariann Licea Interpretating Date/Time 03/27/2017 23:17:57
--- NOTE | 2017-03-27 23:40 | EKG ---
Date Performed: 03/26/2017 Time Performed: 15:05:29 PTAGE: 56 years EKG: Sinus rhythm WITH FREQUENT SUPRAVENTRICULAR PREMATURE COMPLEXES IN A BIGEMINAL PATTERN ABNORMAL RHYTHM ECG NO PREVIOUS TRACING DOCTOR: Mariann Licea Interpretating Date/Time 03/27/2017 23:39:21
[2017-03-28] VITALS: BP 100/59; PULSE 86; RESP 16; TEMP 96.1; O2SAT 92
[2017-03-28] MEDS: MORPHINE SULFATE 4 MG/ML INJ IV PRN ×3 (00:41→06:48)
[2017-03-28 04:00] VITALS: BP 91/52; PULSE 63; RESP 17; TEMP 95.8; O2SAT 93
--- NOTE | 2017-03-28 07:22 | HHI.DCPOC ---
Discharge Care Plan Diagnosis: (1) Laceration of right forearm (2) Status post incision and drainage Goals to Promote Your Health * To prevent worsening of your condition and complications * To maintain your health at the optimal level Directions to Meet Your Goals Take your medications as prescribed Follow your dietary instruction Follow activity as directed Keep your appointments as scheduled Take your immunizations and boosters as scheduled If your symptoms worsen call your PCP, if no PCP go to Urgent Care Center or Emergency Room Smoking is Dangerous to Your Health. Avoid second hand smoke Call the 24-hour hour crisis hotline for domestic abuse at Alonzo Peralta MD R2 Mar 28, 2017 07:22
[2017-03-28 07:52] LABS: HEMATOCRIT 44.2 % (39.0-51.0); MEAN CELL VOLUME 91.1 FL (80.0-100.0); MEAN CORPUSCULAR HEMOGLOBIN 30.8 PG (27.0-34.0); MEAN CORPUSCULAR HGB CONC 33.8 % (32.0-36.0); PLATELET COUNT 334 TH/MM3 (150-450); RED BLOOD COUNT 4.85 MIL/MM3 (4.50-5.90); RED CELL DISTRIBUTION WIDTH 13.4 % (11.6-17.2); REVIEW FLAG FINAL; WHITE BLOOD COUNT 6.3 TH/MM3 (4.0-11.0)
[2017-03-28 08:00] VITALS: BP 90/55; PULSE 65; RESP 16; TEMP 95.7; O2SAT 92
[2017-03-28 08:15] LABS: BICARBONATE 26.6 MEQ/L (21.0-32.0); POTASSIUM 4.5 MEQ/L (3.5-5.1)
[2017-03-28] MEDS ORDERED: PERC10TA27 PO (08:36)
[2017-03-28] MEDS: DOCUSATE SODIUM 50 MG/SENNA 8.6 MG TAB PO SCH (09:08)
[2017-03-28] MEDS: GABAPENTIN 400 MG CAP PO SCH (09:08)
[2017-03-28] MEDS: ALPRAZolam 1 MG TAB PO SCH (09:09)
[2017-03-28] MEDS: ALBUTEROL SULFATE 90 MCG/ACT HFA 18 GM INHALER INH SCH (09:09)
[2017-03-28 09:13] VITALS: O2SAT 92
[2017-03-28] MEDS ORDERED: CEPH-460 PO (09:36)
--- NOTE | 2017-03-28 09:45 | HHI.FPPN ---
Subjective Remarks No acute events. He is status post day 1 after incision and drainage of his right forearm with repair of the fascia by Dr. Juárez, hand surgeon. He has flexion and extension of all digits of that had, but extension of the middle finger is limited. He has good sensation and capillary refill of the hand. He has normal sensation of the hand. Normal color of the skin. Arm is in a splint. (Alonzo Peralta MD R2) Objective Vitals Vital Signs Date Time Temp Pulse Resp B/P Pulse Ox O2 Delivery O2 Flow Rate FiO2 03/28/17 09:13 92 21 03/28/17 08:00 95.7 65 16 90/55 92 03/28/17 06:53 20 03/28/17 04:00 95.8 63 17 91/52 93 03/28/17 00:00 96.1 86 16 100/59 92 03/27/17 20:57 99 Nasal Cannula 2.00 03/27/17 20:55 96.4 79 17 130/74 97 03/27/17 20:47 98 21 03/27/17 20:45 77 14 125/82 100 Nasal Cannula 2 03/27/17 20:30 81 14 121/79 99 Nasal Cannula 2 03/27/17 20:15 83 16 121/81 99 Nasal Cannula 2 03/27/17 20:00 97.7 87 16 119/73 99 Nasal Cannula 2 03/27/17 16:09 20 03/27/17 16:00 97.9 76 16 132/88 97 03/27/17 12:00 97.5 72 16 115/80 94 I/O 03/27/17 03/27/17 03/27/17 03/28/17 03/28/17 03/28/17 07:00 15:00 23:00 07:00 15:00 23:00 Intake Total 240 ml 0 ml 940 ml 480 ml Output Total 5 ml Balance 240 ml 0 ml 935 ml 480 ml Intake Oral 240 ml 0 ml 240 ml 480 ml IV Total 100 ml Other 600 ml Estimated Blood Loss 5 ml # Voids 1 2 1 2 # Bowel Movements 0 0 0 0 (Alonzo Peralta MD R2) Result Diagram: 03/28/17 0651 03/28/17 0651 Objective Remarks GENERAL: Comfortable resting in bed SKIN: No cyanosis of hand EYES: No scleral icterus. No injection or drainage. PERRLA. EOMI. HENT: Normocephalic. Atraumatic. MMM. OP Benign. NECK: Supple, trachea midline. No JVD or lymphadenopathy. CARDIOVASCULAR: Regular rate and irregular rhythm without obvious murmurs, gallops, or rubs. RESPIRATORY: Expiratory respiratory wheezes bilaterally throughout both lung leonard. No crackles or rhonchi. No increased work of breathing. GASTROINTESTINAL: Abdomen soft, non-tender, nondistended with positive bowel sounds. No masses appreciated. MUSCULOSKELETAL: Right upper extremity in splint, hand with normal color, no cyanosis, normal sensation of the fingers, able to flex and extend all digits, extension of the 3rd digit is functional but limited, normal capillary refill, no swelling. BACK: Nontender without obvious deformity. No CVA tenderness. NEURO/PSYCH: Afocal. Awake, alert, and oriented x3. (Alonzo Peralta MD R2) A/P Assessment and Plan 56 y/o M with a PMHx of HTN, COPD, and anxiety presenting to the ED s/p manufacturing injury to his RUE. He is status post day 1 after incision and drainage with repair of the fascia, no tendon laceration noted during the surgery. Discharge Planning Plan for discharge today, will go home with Percocet and Naproxen for pain management, and will receive course of Keflex. Will follow up with hand surgery in 1 to 2 weeks. To stay out of work until cleared by hand surgery. Will keep arm in splint until appt. (Alonzo Peralta MD R2) Attending Attestation Patient seen and examined. Case reviewed and discussed with the resident team. Agree with plan of care as discussed with me and documented in the resident note. he is very eager for D/C and will follow up with his surgeon (Katy Mcgregor MD) Problem List: (1) Laceration of right forearm Status: Acute Plan: Patient with mechanical injury to right upper extremity resulting in laceration of the flexural and extensor surface of the right forearm, now s/p day 1 after I&D and fascia repair. - Keep arm in splint - Hand surgery appt in 1 to 2 weeks - Keflex for one week - Percocet, Naproxen for pain control (2) COPD (chronic obstructive pulmonary disease) Status: Chronic Plan: Patient with history of COPD secondary to smoking history Chest x-ray: No acute disease. Continue Combivent DuoNeb's when necessary for shortness of breath (3) Nutrition, metabolism, and development symptoms Status: Acute Plan: Diet: Tolerating diet Fluids: PO fluids (Alonzo Peralta MD R2) Problem Qualifiers (1) Laceration of right forearm: Qualified Code: S51.811A - Laceration of right forearm, initial encounter (2) COPD (chronic obstructive pulmonary disease): Qualified Code: J44.9 - Chronic obstructive pulmonary disease, unspecified COPD type Alonzo Peralta MD R2 Mar 28, 2017 09:45 Katy Mcgregor MD Mar 30, 2017 11:12
--- NOTE | 2017-03-28 12:29 | HHI.DS ---
Discharge Summary Admission Date Mar 26, 2017 at 18:03 Discharge Date: Mar 28, 2017 Admitting Diagnosis lacerations right forearm (1) Laceration of right forearm Diagnosis: Principal Plan: Patient with mechanical injury to right upper extremity resulting in laceration of the flexural and extensor surface of the right forearm, now s/p day 1 after I&D and fascia repair. - Keep arm in splint - Hand surgery appt in 1 to 2 weeks - Keflex for one week - Percocet, Naproxen for pain control (2) COPD (chronic obstructive pulmonary disease) Diagnosis: Secondary Plan: Patient with history of COPD secondary to smoking history Chest x-ray: No acute disease. Continue Combivent DuoNeb's when necessary for shortness of breath (3) Nutrition, metabolism, and development symptoms Diagnosis: Secondary Plan: Diet: Tolerating diet Fluids: PO fluids Consultants hand surgery Procedures Incision and drainage and fascia repair on 03/27/17 Brief History Mr. Peralta is a 56 y/o M with a PMHx of HTN, COPD, and anxiety presenting to the ED s/p manufacturing injury to his RUE. 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 This resulted in two lacerations of this forearm, one on the flexural side and one on the extensor side. Immediately after he felt 10/ 10 pain and the wounds started to immediately hemorrhage. He wrapped his arm in a rag and was transferred to an urgent care for evaluation who recommended he come to the ED. Currently his arm is wrapped in a sterile bandage with his pain controlled at 3/10. His only complaint is that he cannot extend the 3rd finger of his R hand. He initially had some mild nausea after the incident, but that has since resolved. Otherwise he denies any fevers, chills, SOB, chest pain, ABD pain, NVD, or calf tenderness. He is stable overnight and is scheduled to have surgery to wash out his wound and for further evaluation CBC/BMP: 03/28/17 0651 03/28/17 0651 Significant Findings Laboratory Tests Test 03/26/17 03/26/17 03/27/17 03/28/17 15:00 15:20 07:15 06:51 White Blood Count 11.8 TH/MM3 (4.0-11.0) Neutrophils (%) (Auto) 78.8 % (16.0-70.0) Neutrophils # (Auto) 9.3 TH/MM3 (1.8-7.7) Sodium Level 134 MEQ/L (136-145) Creatinine 1.95 MG/DL (0.60-1.30) Estimat Glomerular Filtration 36 ML/MIN (>89) 70 ML/MIN (>89) 74 ML/MIN (>89) Rate Monocytes (%) (Auto) 12.5 % (0.0-8.0) Monocytes # (Auto) 1.0 TH/MM3 (0-0.9) Random Glucose 123 MG/DL (74-106) Imaging Last 72 hours Impressions Radius/Ulna X-Ray 03/26/17 0000 Signed Impressions: Service Date/Time: Sunday, March 26, 2017 14:52 - CONCLUSION: Large proximal forearm laceration. No fracture. Amarjit Sheets MD Chest X-Ray 03/26/17 0000 Signed Impressions: Service Date/Time: Sunday, March 26, 2017 19:12 - CONCLUSION: No acute disease. Adrien Baxter MD PE at Discharge GENERAL: Comfortable resting in bed SKIN: No cyanosis of hand EYES: No scleral icterus. No injection or drainage. PERRLA. EOMI. HENT: Normocephalic. Atraumatic. MMM. OP Benign. NECK: Supple, trachea midline. No JVD or lymphadenopathy. CARDIOVASCULAR: Regular rate and irregular rhythm without obvious murmurs, gallops, or rubs. RESPIRATORY: Expiratory respiratory wheezes bilaterally throughout both lung leonard. No crackles or rhonchi. No increased work of breathing. GASTROINTESTINAL: Abdomen soft, non-tender, nondistended with positive bowel sounds. No masses appreciated. MUSCULOSKELETAL: Right upper extremity in splint, hand with normal color, no cyanosis, normal sensation of the fingers, able to flex and extend all digits, extension of the 3rd digit is functional but limited, normal capillary refill, no swelling. BACK: Nontender without obvious deformity. No CVA tenderness. NEURO/PSYCH: Afocal. Awake, alert, and oriented x3. Hospital Course 56 year old male presented to the ED after a manufacturing accident involving his right upper extremity. 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 This resulted in two lacerations of his right forearm, one on the flexural and one on the extensor side. He had difficulty with extension of the third digit of his right hand. Hand surgery was consulted and he was taken for incision and drainage and fascia repair of the right forearm on 03/27/17. No tendon injury was noted during the procedure. He tolerated the procedure well. He was discharged on status post day 1 after the procedure. He is to follow up with hand surgery in one to two weeks. Until that time, he is to keep his arm in a splint. He will take a week course of Keflex. He will take Percocet and Naproxen PRN for pain management. He is not showing any symptoms of compartment syndrome at the time, and he was instructed on the symptoms so that he can report them if they occur. He has extension and flexion of all digits of the right hand, except that extension of the 3rd digit is somewhat limited. He is to stay out of work until cleared by hand surgery. Pt Condition on Discharge: Good Discharge Disposition: Discharge Home Discharge Instructions DIET: Follow Instructions for: As Tolerated, No Restrictions Activities you can perform: See Additionl Instruction Other Activity Instructions: Keep arm in splint until hand surgery appt Follow up Referrals: Hand Surgery - 1 Week PCP Follow-up - 1 Week New Medications: Cephalexin (Keflex) 500 Mg Cap 500 MG PO Q12H Infection #14 Ref 0 CAP Oxycodone-Acetaminophen (Percocet) 10-325 mg Tab 1 TAB PO Q6H PRN PAIN #30 Ref 0 TAB Continued Medications: Alprazolam (Xanax) 1 Mg Tab 1 MG PO TID Anxiety Ref 0 TAB Baclofen (Baclofen) 10 Mg Tab 15 MG PO TID Muscle Spasm Ref 0 TAB Gabapentin (Gabapentin) 800 Mg Tab 800 MG PO TID #90 Ref 0 TAB Ipratropium-Albuterol Inh (Combivent Respimat Inh) 20-100 Prison/Act Aero 1 PUFF INH QID Asthma Management #1 Ref 0 INHALER Naproxen (Naproxen) 500 Mg Tab 500 MG PO BID #60 Ref 0 TAB Paroxetine (Paxil) 30 Mg Tab 30 MG PO HS #30 Ref 0 TAB Trazodone (Trazodone) 100 Mg Tablet 200 MG PO HS Control Depression #30 Ref 0 TAB Alonzo Peralta MD R2 Mar 28, 2017 12:29
--- NOTE | 2017-03-29 15:34 | MP ---
cc: ORALIA JUÁREZ DATE OF SURGERY 03/27/2019 PREOPERATIVE DIAGNOSIS 1. Open wound to right forearm dorsal and volar. 2. Concern for extensor tendon versus muscle injury, right forearm. POSTOPERATIVE DIAGNOSIS 1. Open wounds, right forearm. 2. Laceration of the extensor fascia. No injury to extensor tendon. PROCEDURE 1. Irrigation debridement open wound, right forearm including skin, subcutaneous tissue and muscle. 2. Repair of extensor fascia, right forearm. 3. Exploration of penetrating wound, right forearm. SURGEON Dr. Oralia Juárez ANESTHESIA General and local. TOURNIQUET TIME 20 minutes at 250 mmHg. INDICATION FOR PROCEDURE Juan Peralta is a pleasant 56-year-old right-hand dominant male who states that he was at work yesterday on 03/26/2017 when he machine compressed his right forearm and sustained a laceration to both the dorsal and volar aspects with difficulty fully hyperextending the right middle finger. At that time I recommended irrigation and debridement due to the contamination of the wound and exploration of the wound, possible repair of any injured structures including possible repair of the extensor tendon. Risks were explained to include but limited to wound complications, infection, paresthesias, stiffness, pain, persistent inability to extend the finger and the patient elected to proceed. DESCRIPTION OF PROCEDURE The patient was identified in the preoperative holding area and the correct extremity was marked. The patient taken to the operating room where anesthesia was induced. The right upper extremity was prepped and draped in normal sterile fashion. Three liters of antibiotic saline were irrigated through both wounds and there was no further contamination. The wound was debrided with a rongeur. The volar wound was explored. This did not extend into the fascia. The patient had no deficits preoperatively on the volar side of the forearm. There were no lacerations of the flexor tendons. This wound was closed with Monocryl and nylon in a layered fashion. Attention was then turned to the dorsal wound. This was extended proximally and distally. There were two puncture wounds through the extensor fascia. There was no laceration of the tendon as this was more proximal than the tendon level. The patient had near-normal tenodesis on the table with flexion/extension of the wrist with no extensor lag of the middle finger. There was no exposed tendon end. The fascia was repaired with PDS and the skin was closed with Monocryl and nylon. The patient was placed into a splint and awoken from anesthesia without any complications. 30 cc of 3% lidocaine with no epinephrine was used for local anesthesia. The patient may have a slight inability to fully hyperextend the finger due to damage to the muscle and fascia. Again, there was no tendon laceration. Due to the near-normal tenodesis I did not make a counter incision over the wrist. The patient was awoken from anesthesia without any complications. He will remain off work until further notice. Oralia Juárez MD SH/EO /8:11 PM /3:24 PM MTDD
== END 2017-03-28 10:52 | disposition home or self-care (01) | DRG 580 ==
LOC: NEPD 13:20 → NEDA 15:26 → OBSVTOIN 18:03 → NEPHCDU 19:17 → N06B 21:48
PROVIDERS: ADMIT Family Medicine; ATTEND Family Medicine
PROC: 0JQG0ZZ Repair Right Lower Arm Subcutaneous Tissue and Fascia, Open Approach (ICD-10-PCS; principal; 2017-03-27 18:27)
DX: S51.811A Laceration without foreign body of right forearm, initial encounter (principal); N17.9 Acute kidney failure, unspecified; E87.1 Hypo-osmolality and hyponatremia; I10 Essential (primary) hypertension; J44.9 Chronic obstructive pulmonary disease, unspecified; F41.9 Anxiety disorder, unspecified; M50.30 Other cervical disc degeneration, unspecified cervical region; M51.36 Other intervertebral disc degeneration, lumbar region; F17.210 Nicotine dependence, cigarettes, uncomplicated; W31.82XA Contact with other commercial machinery, initial encounter; Y93.89 Activity, other specified; Y92.69 Other specified industrial and construction area as the place of occurrence of the external cause; Y99.0 Civilian activity done for income or pay
CPT/HCPCS: 71010; 73090; 80048; 85025; 85027; 85610; 85730; 87040; 90471; 90714; 93005; 94150; 94640; 94664; 94667; 94668; 96365; J0131; J0690; J2250; J2270; J2370; J2405; J3010; J7120